=== PATIENT | female | born 1960 | race Caucasian/White ===

== ENCOUNTER 2018-09-20 10:26 | Emergency (ER) | payer MEDICAID, OTHER ==
[~2018-09-20] VITALS: Ht 152.4 cm; Wt 74.8 kg
[2018-09-20 10:28] VITALS: Ht 152.4 cm; Wt 74.8 kg
[2018-09-20] MEDS ORDERED: SULF1TAB31 PO (12:03)
[2018-09-20 12:31] VITALS: BP 115/75; PULSE 72; RESP 18
--- NOTE | 2018-09-20 17:18 | ERD ---
ER Documentation Chief Complaint Chief Complaint fever and body pain x 8 days HPI This is a 57-year-old female who presents with body pain, fever, cough, fatigue times 1 week. Patient states that she was at [facility] last week where she was diagnosed with typhoid. They provided her an unknown antibiotic but she did not fill it because she was unable to afford it. She returns today because she continues to have increased fatigue and body pain. Denies vomiting, no diarrhea, no abdominal pain, no dysuria. She has not traveled, she has not eaten off of food trucks, she primarily eats food cooked in her own home. ROS All systems reviewed and are negative except as per history of present illness. Medications Home Meds Active Scripts Sulfamethoxazole/Trimethoprim* (Bactrim Ds* Tablet) 1 Each Tablet, 1 TAB PO BID for 3 Days, #6 TAB Prov:LEE MADDOX POKER DEALER 09/20/18 Allergies Allergies: Coded Allergies: No Known Allergy (Unverified , 09/20/18) PMhx/Soc Medical and Surgical Hx: pt denies Medical Hx, pt denies Surgical Hx Hx Alcohol Use: No Hx Substance Use: No Hx Tobacco Use: Yes Smoking Status: Current some day smoker FmHx Family History: No diabetes, No coronary disease, No other Physical Exam Vitals Vital Signs Date Temp Pulse Resp B/P (MAP) Pulse Ox O2 O2 Flow FiO2 Time Delivery Rate 09/20/18 98.1 72 18 115/75 100 Room Air 12:31 (88) 09/20/18 98.0 82 18 116/64 98 10:28 (81) Physical Exam Const: No acute distress Head: Atraumatic Eyes: Normal Conjunctiva, PERRL ENT: Normal External Ears, Nose and Mouth. Pharynx pink, no lesions, no petechia, redness. Neck: Full range of motion. No meningismus. Resp: Clear to auscultation bilaterally Cardio: Regular rate and rhythm, no murmurs Abd: Soft, non tender, non distended. Normal bowel sounds Skin: No petechiae or rashes, Back: No midline or flank tenderness Ext: No cyanosis, or edema Neur: Awake and alert Psych: Normal Mood and Affect Result Diagram: 09/20/18 1134 09/20/18 1134 Results 24 hrs Laboratory Tests Test 09/20/18 11:26 09/20/18 11:34 Bedside Urine pH (LAB) 5.5 Bedside Urine Protein (LAB) Negative Bedside Urine Glucose (UA) Negative Bedside Urine Ketones (LAB) Negative Bedside Urine Blood Negative Bedside Urine Nitrite (LAB) Positive Bedside Urine Leukocyte Esterase (L Negative White Blood Count 5.0 10^3/ul Red Blood Count 4.95 10^6/ul Hemoglobin 14.9 g/dl Hematocrit 46.5 % Mean Corpuscular Volume 93.9 fl Mean Corpuscular Hemoglobin 30.1 pg Mean Corpuscular Hemoglobin Concent 32.0 g/dl Red Cell Distribution Width 12.1 % Platelet Count 383 10^3/UL Mean Platelet Volume 10.3 fl Immature Granulocytes % 0.400 % Neutrophils % 45.9 % Lymphocytes % 44.4 % Monocytes % 7.7 % Eosinophils % 1.2 % Basophils % 0.4 % Nucleated Red Blood Cells % 0.0 /100WBC Immature Granulocytes # 0.020 10^3/ul Neutrophils # 2.3 10^3/ul Lymphocytes # 2.2 10^3/ul Monocytes # 0.4 10^3/ul Eosinophils # 0.1 10^3/ul Basophils # 0.0 10^3/ul Nucleated Red Blood Cells # 0.0 10^3/ul Sodium Level 144 mmol/L Potassium Level 4.3 mmol/L Chloride Level 103 mmol/L Carbon Dioxide Level 31 mmol/L Anion Gap 10 Blood Urea Nitrogen 13 mg/dl Creatinine 0.63 mg/dl Est Glomerular Filtrat Rate mL/min > 60 mL/min Glucose Level 121 mg/dl Calcium Level 9.9 mg/dl Total Bilirubin 0.3 mg/dl Direct Bilirubin 0.00 mg/dl Indirect Bilirubin 0.3 mg/dl Aspartate Amino Transf (AST/SGOT) 146 IU/L Alanine Aminotransferase (ALT/SGPT) 217 IU/L Alkaline Phosphatase 132 IU/L Total Protein 8.9 g/dl Albumin 4.6 g/dl Globulin 4.30 g/dl Albumin/Globulin Ratio 1.06 Procedures/MDM This 57-year-old female presents with concern for typhoid infection. States t hat she had eaten an old piece of wiggins and was told that gave her typhoid. This patient most likely does not have the typhoid as she is not having vomiting, diarrhea, any nausea, red spots in mouth, fever. Typhoid can present with anemia and considering patient's increased fatigue blood work was drawn to assess for anemia, dehydration, electrolyte imbalance, leukocytosis. Urine sample was collected and positive for UTI. Patient was discharged home with antibiotics for UTI and instructions to increase hydration. Instructed to follow-up with primary care provider. Patient was provided with laboratory results to take to PMD. Discussed testing for typhoid and that her symptoms were not characteristic of a current typhoid infection, and having typhoid would be very rare. Patient agreeable to discharge plan and verbalized understanding of signs and symptoms of worsening of condition and when to seek immediate emergent medical treatment. Departure Diagnosis: Primary Impression: UTI (urinary tract infection) Condition: Stable Patient Instructions: Understanding Urinary Tract Infections (UTIs) Additional Instructions: Call your primary care doctor TOMORROW for an appointment during the next 2-3 days.See the doctor sooner or return here if your condition worsens before your appointment time. Increase hydration to 1-2 L per day Return to the emergency room with abdominal pain, fever >101, worsening of symptoms LEE MADDOX NP Sep 20, 2018 17:18
== END 2018-09-20 12:32 | disposition home or self-care (01) ==
LOC: FTE 10:26
DX: N39.0 Urinary tract infection, site not specified (principal); F17.210 Nicotine dependence, cigarettes, uncomplicated
CPT/HCPCS: 80053; 81003; 85025; Z7502; 99283

== ENCOUNTER 2018-10-02 17:52 | Emergency (ER) | payer SELFPAY ==
[~2018-10-02] VITALS: Ht 167.6 cm; Wt 76.9 kg
[~2018-10-02 17:52] MED LIST: SULF1TAB31 PO
[2018-10-02 17:56] VITALS: BP 123/80; PULSE 96; RESP 20; Ht 167.6 cm; Wt 76.9 kg
[2018-10-03] MEDS ORDERED: IBUP-1542 PO (11:56)
[2018-10-03] MEDS ORDERED: BENZ-6 PO (11:56)
[2018-10-03] MEDS ORDERED: GUAI118L22 PO (11:56)
== END 2018-10-02 20:00 | disposition left against medical advice (07) ==
LOC: FTE 17:52
DX: Z53.21 Procedure and treatment not carried out due to patient leaving prior to being seen by health care provider (principal)

== ENCOUNTER 2018-10-03 10:29 | Emergency (ER) | payer OTHER ==
[~2018-10-03] VITALS: Wt 89.0 kg
[2018-10-03 10:32] VITALS: BP 123/63; PULSE 81; RESP 18
[2018-10-03] MEDS ORDERED: KETOROLAC 60 MG INJ IM STA (11:02)
[2018-10-03] MEDS ORDERED: METHYLPREDNISOLONE ACET 80 MG/ML 1 ML IM ONE (11:30)
[2018-10-03] MEDS ORDERED: DEXAMETHASONE 10 MG/ML 1 ML INJ IM ONE (11:30)
[2018-10-03] MEDS ORDERED: IBUP-1542 PO (11:56)
[2018-10-03] MEDS ORDERED: GUAI118L22 PO (11:56)
[2018-10-03] MEDS ORDERED: BENZ-6 PO (11:56)
--- NOTE | 2018-10-03 13:07 | ERD ---
ER Documentation Chief Complaint Chief Complaint SORE THROAT, FLU X 3 DAYS, BODY ACHES HPI History of Present Illness: Patient reporting cold-like symptoms for 3 days. Associated symptoms include sore throat, arthralgias, runny nose, productive cough with green sputum. Patient also reporting right-sided body pain; denies paralysis, tingling, decreased sensation. Denies chest pain or shortness of breath. At home pharmacological/nonpharmacological treatment for symptoms: Denies Social History: Patient denies tobacco, alcohol, elicit drug use Allergies: NKDA Social Concerns: Denies ROS All systems reviewed and are negative except as per history of present illness. Medications Home Meds Active Scripts Ibuprofen* (Motrin*) 600 Mg Tab, 600 MG PO Q6H PRN for PAIN AND OR ELEVATED TEMP, #30 TAB Prov:CHANDA SARAVIA NP 10/03/18 Benzonatate* (Tessalon Perle*) 100 Mg Capsule, 100 MG PO TID for COUGH, #30 CAP Prov:CHANDA SARAVIA NP 10/03/18 Guaifenesin/Codeine Phosphate (CHERATUSSIN AC SYRUP) 118 Ml Liquid, 10 ML PO Q8 PRN for COUGH/CONGESTION, #120 ML Prov:CHANDA SARAVIA NP 10/03/18 Sulfamethoxazole/Trimethoprim* (Bactrim Ds* Tablet) 1 Each Tablet, 1 TAB PO BID for 3 Days, #6 TAB Prov:LEE MADDOX YACHT RIGGER 09/20/18 Allergies Allergies: Coded Allergies: No Known Allergy (Unverified , 09/20/18) PMhx/Soc History of Surgery: No Anesthesia Reaction: No Hx Neurological Disorder: No Hx Respiratory Disorders: No Hx Cardiac Disorders: No Hx Psychiatric Problems: No Hx Miscellaneous Medical Probl: No Hx Alcohol Use: No Hx Substance Use: No Hx Tobacco Use: Yes Smoking Status: Never smoker FmHx Family History: No diabetes, No coronary disease Physical Exam Vitals Vital Signs Date Temp Pulse Resp B/P (MAP) Pulse Ox O2 O2 Flow FiO2 Time Delivery Rate 10/03/18 97.6 81 18 123/63 99 10:32 (83) Physical Exam Const: No acute distress, afebrile Head: Atraumatic Eyes: Normal Conjunctiva ENT: Normal External Ears, Nose and Mouth. 3+ tonsils, no exudates. Neck: Full range of motion. No meningismus. Anterior cervical lymphadenopathy. Resp: Clear to auscultation bilaterally Cardio: Regular rate and rhythm, no murmurs Abd: Soft, non tender, non distended. No guarding, no masses, no rigidity Skin: No petechiae or rashes Back: No midline or flank tenderness Ext: No cyanosis, or edema Neur: Awake and alert x3, no focal deficits or facial asymmetry Psych: Normal Mood and Affect Results 24 hrs Current Medications Medications Dose Sig/Latonia Start Time Status Last (Trade) Ordered Route PRN Stop Time Admin Dose Reason Admin Ketorolac 60 mg ONCE STAT 10/03/18 DC 10/03/18 Tromethamine IM 11:02 11:15 (Toradol) 10/03/18 11:04 8 mg ONCE ONCE 10/03/18 DC 10/03/18 Dexamethasone IM 11:30 11:16 (Decadron) 10/03/18 11:31 80 mg ONCE ONCE 10/03/18 DC 10/03/18 Methylprednis IM 11:30 11:16 olone 10/03/18 11:31 Acetate (Depo-Medrol 80 Mg/ml 1 ml) Procedures/MDM ED course includes a thorough examination and history. ED course includes medication; ketorolac for pain/inflammation, methylprednisolone and dexamethasone for pharyngeal/tonsillar edema. No fever at this moment; denies use of antipyretics. Low suspicion for life-threatening emergency, bacterial or infectious infection that requires antibiotics, sepsis, pharyngeal abscess, or a HEENT/neurological medical emergency that requires hospitalization/immediate intervention Otherwise healthy patient presenting with constellation of symptoms likely representing uncomplicated viral syndrome as characterized by history, physical exam findings. Patient reassessment: No acute distress. Patient reporting decreased pain after medication administration. Disposition given. No changes in patient mentation. No respiratory distress, otherwise relatively well appearing and nontoxic. Patient educated on diagnoses, prescriptions (Tessalon Perles and Cheratussin for cough/congestion; ibuprofen for pain/inflammation), follow-up care, return precautions. Strict return precautions given for worsening condition; questions answered discharge. Disposition for discharge with followup in 2 days with PCP/clinic. Departure Diagnosis: Primary Impression: Viral syndrome Condition: Stable Patient Instructions: Pharyngitis, Viral, Viral Syndrome (Adult) Referrals: [facility] Usted se patel hecho un examen mdico de control que le indica que no est en jarod condicin que requiera tratamiento urgente en el Departamento de Emergencia. Un estudio ms profundo y el tratamiento de riddle condicin pueden esperar sin ningn riesgo hasta que usted sea atendida/o en el consultorio de riddle mdico o jarod clnica. Es responsabilidad suya arreglar jarod massiel para el seguimiento del lakhwinder. MANEJO DE CONDICIONES NO URGENTES EN EL FUTURO 1) Si usted tiene un mdico de atencin primaria: Usted debera llamar a riddle mdico de atencin primaria antes de venir al departamento de emergencia. Despus de las horas de consultorio, riddle doctor o riddle asociado/a est disponible por telfono. El mdico o enfermero de [place] en el servicio telefnico puede asesorarle por jacky medio para atender el problema, o lakhwinder contrario se puede programar jarod massiel. 2) Si usted no tiene un mdico de atencin primaria: Llame al mdico o clnica de referencia que aparece abajo althea las horas de consultorio para hacer jarod massiel para que le vean. CLINICAS: [facility] [phone] [id number] [facility] [phone] [address] [facility] [phone] [address] [facility] [phone] [facility] [place] [phone] [address] [facility]. [phone] [address] [facility] () Usted se patel hecho un examen mdico de control que le indica que no est en jarod condicin que requiera tratamiento urgente en el Departamento de Emergencia. Un estudio ms profundo y el tratamiento de riddle condicin pueden esperar sin ningn riesgo hasta que usted sea atendida/o en el consultorio de riddle mdico o jarod clnica. Es responsabilidad suya arreglar jarod massiel para el seguimiento del lakhwinder. MANEJO DE CONDICIONES NO URGENTES EN EL FUTURO 1) Si usted tiene un mdico de atencin primaria: Usted debera llamar a riddle mdico de atencin primaria antes de venir al departamento de emergencia. Despus de las horas de consultorio, riddle doctor o riddle asociado/a est disponible por telfono. El mdico o enfermero de [place] en el servicio telefnico puede asesorarle por jacky medio para atender el problema, o lakhwinder contrario se puede programar jarod massiel. 2) Si usted no tiene un mdico de atencin primaria: Llame al mdico o condado institucions de referencia que aparece abajo althea las horas de consultorio para hacer jarod massiel para que le vean. SI USTED NO PUEDE PAGAR PARA CHARLIE UN MEDICO puede ir a: [facility] [address] [place] [address] [facility] [address] [place] [address] [facility] [address] [place] [address] [facility] [address] [place], [place] [id number] Additional Instructions: Llame a riddle mdico de atencin primaria MAANA para jarod massiel althea los prximos 2 a 3 natarajan. Consulte al mdico antes o vuelva aqu si riddle afeccin empeora antes de la hora de riddle massiel. Te estoy dando 3 medicamentos para tus sntomas. No se necesitan antibiticos en catrina momento. -GUAIFENESINA / codena es un jarabe para la tos que tambin ayuda con la flema que se puede massiel cada 8 horas; catrina jarabe para la tos puede causarle sueo, as que no opere maquinaria pesada mientras nupur esto. -Tesaln de Perles barbara medicamento para la tos; Catrina medicamento no lo adormecer, puede tomarlo cada 8 horas. -Ibuprofeno es un medicamento antiinflamatorio / para el dolor. Puede massiel catrina medicamento cada 6 horas para el dolor. Rachel muchos lquidos, incluyendo agua con electrolitos o agua. Regrese a la silvestre de emergencias si los sntomas siguen presentes despus de 7 natarajan o si presenta fiebre, dolor en el pecho, dificultad respiratoria, dificultad para respirar, estado mental alterado, nuseas, vmitos o cualquier sntoma de empeoramiento. En catrina momento riddle examen neurolgico es normal. No hay signos clnicos de un derrame cerebral. Si desarrolla parlisis unilateral, dolor de donovan emil, debilidad; volver a la silvestre de emergencias ----- Call your primary care doctor TOMORROW for an appointment during the next 2-3 days.See the doctor sooner or return here if your condition worsens before your appointment time. I am giving you 3 medications for your symptoms. -GUAIFENESIN/codeine is a cough syrup that will also help with phlegm that can be taken every 8 hours; this cough syrup may make you sleepy so do not operate heavy machinery while taking this. -Tessalon Perles as a cough medication; this medication will not make you sleepy, you can take it every 8 hours. -Ibuprofen is a anti-inflammatory/pain medication. You can take this medication every 6 hours for pain. Drinks plenty of fluids including electrolyte water or water. Return to ER if symptoms are still present after 7 days or if you develop a fever, chest pain, respiratory distress, shortness of breath, altered mental status, nausea, vomiting, or any worsening symptoms. At this time your neurological exam is normal. There are no clinical signs of a stroke. If you develop one-sided paralysis, severe headache, weakness; return to emergency room CHANDA SARAVIA NP Oct 03, 2018 13:07
== END 2018-10-03 12:23 | disposition home or self-care (01) ==
LOC: FTE 10:29
DX: B34.9 Viral infection, unspecified (principal); Z87.891 Personal history of nicotine dependence
CPT/HCPCS: 96372; J1040; J1100; J1885; Z7502